=== PATIENT | male | born 1980 | race Two or more races ===

== ENCOUNTER 2023-06-24 20:28 | Emergency (ER) | payer OTHER ==
[~2023-06-24] VITALS: Ht 152.4 cm; Wt 85.3 kg
[2023-06-24] MEDS ORDERED: ATACAND32 MG (20:46)
[2023-06-24 21:33] LABS: HEMATOCRIT 35.8 % (39.0-48.0); HEMOGLOBIN 12.5 g/dL (13-16.00); MEAN CELL VOLUME 88.7 fL (80.0-100.00); PLATELET COUNT 251 K/uL (150-450); RED BLOOD COUNT 4.03 M/uL (4.00-6.00); RED CELL DISTRIBUTION WIDTH 13.2 % (11.5-14.5)
[2023-06-24 21:55] LABS: ALBUMIN 3.5 gm/dL (3.4-5.0); BILIRUBIN TOTAL 0.34 mg/dL (0.3-1.2); CREATININE SERUM 0.97 mg/dL (0.70-1.30); GFR 83.69; GLOBULINA 3.8 G/DL (2.4-3.5); POTASSIUM 3.64 mEq/L (3.5-5.1); TOTAL PROTEIN 7.3 gm/dL (6.4-8.2)
[2023-06-24] MEDS ORDERED: PEPCID AC20 MG PO (22:01)
== END 2023-06-24 22:24 | disposition home or self-care (01) ==
LOC: ER 20:28
PROVIDERS: General Practice
DX: R06.6 Hiccough (principal); Z88.0 Allergy status to penicillin; Z88.8 Allergy status to other drugs, medicaments and biological substances; Z91.041 Radiographic dye allergy status

== ENCOUNTER 2024-03-26 09:00 | Inpatient (IN) | payer OTHER ==
[~2024-03-26] VITALS: Ht 172.7 cm; Wt 77.6 kg
[~2024-03-26 09:00] MED LIST: ATACAND32 MG; PEPCID AC20 MG PO
[2024-03-26] MEDS ORDERED: HYDROCHLOROTHIA25 MG (09:12)
--- NOTE | 2024-03-26 09:12 | NUR ---
PTE ALERTA Y ORIENTADO X3 REFIERE QUE DESDE HACE UNOS AGRAWAL, TIENE DOLOR DE SALO, CUERPO, DEBILIDAD Y TIENE UN BUMP EN EL LADO GEOVANAN DE LA SALO. SE PASCUAL REALIZADO CBC VARIAS VECES LO CUAL LE KUMAR BAJADO LAS PLAQUETAS DE LOS [address]. SE LE DEANNA S/V Y SE UBICA
--- NOTE | 2024-03-26 09:29 | NUR ---
PTE ALERTA Y ORIENTADO X3 RN MCKEON LE ORIENTA SOBRE TX MEDICO LO CUAL REFIERE ENTENDER Y ACEPTAR SE LE ADMINISTRA MEDICAMENTOS LINA ORDEN MEDICA Y SE LE REALIZAN MUESTRAS DE LAB BAJO MEDIDAS ASEPTICAS
[2024-03-26] MEDS ORDERED: 0.9 % SODIUM CHLORIDE 1,000 ML IV ONE ×2 (09:30→12:30)
[2024-03-26] MEDS ORDERED: TRAMADOL HCL 50 MG TABLET PO ONE (09:30)
[2024-03-26] MEDS ORDERED: METHYLPREDNISOLONE SOD SUCC 40 MG VIAL IV ONE (09:45)
[2024-03-26] MEDS ORDERED: DIPHENHYDRAMINE HCL 50 MG/ML VIAL 1ML IV ONE (09:45)
[2024-03-26 10:11] LABS: HEMATOCRIT 35.4 % (39.0-48.0); HEMOGLOBIN 12.7 g/dL (13-16.00); MEAN CELL VOLUME 86.2 fL (80.0-100.00); MEAN CORPUSCULAR HEMOGLOBIN 30.9 pg (27.00-32.0); MEAN CORPUSCULAR HGB CONC 35.8 g/dl (32.0-36.0); RED BLOOD COUNT 4.11 M/uL (4.00-6.00); RED CELL DISTRIBUTION WIDTH 12.9 % (11.5-14.5)
[2024-03-26 10:18] LABS: PLATELET COUNT 84 K/uL (150-450)
[2024-03-26 10:24] LABS: ALBUMIN 3.6 gm/dL (3.4-5.0); BILIRUBIN TOTAL 0.47 mg/dL (0.3-1.2); CALCIUM 8.5 mg/dL (8.5-10.1); CREATININE SERUM 0.83 mg/dL (0.70-1.30); GFR 99.74; GLOBULINA 3.7 G/DL (2.4-3.5); POTASSIUM 3.49 mEq/L (3.5-5.1); TOTAL PROTEIN 7.3 gm/dL (6.4-8.2)
[2024-03-26] MEDS ORDERED: ONDANSETRON HCL 2 MG/ML VIAL IV ONE (13:30)
[2024-03-26] MEDS ORDERED: MORPHINE SULFATE 4 MG/ML VIAL IV ONE (13:30)
[2024-03-26] MEDS ORDERED: FAMOtidine 10 MG/ML (4ML VIAL) IV ONE (13:30)
[2024-03-26 14:02] LABS: HEMATOCRIT 34.5 % (39.0-48.0); HEMOGLOBIN 12.2 g/dL (13-16.00); MEAN CELL VOLUME 86.5 fL (80.0-100.00); MEAN CORPUSCULAR HEMOGLOBIN 30.6 pg (27.00-32.0); MEAN CORPUSCULAR HGB CONC 35.3 g/dl (32.0-36.0); PLATELET COUNT 88 K/uL (150-450); RED BLOOD COUNT 3.99 M/uL (4.00-6.00); RED CELL DISTRIBUTION WIDTH 13.2 % (11.5-14.5)
--- NOTE | 2024-03-26 15:00 | NUR ---
SE RECIBE PACIENTE DE TURNO ANTERIOR, ALERTA Y ORIENTADO EN JUAN PABLO TIMOTHY ESFERAS UBICADO EN [place] DE [facility]. SE OBSERVA CON BUEN PATRON RESPIRATORIO Y PIEL TIBIA AL TACTO. CANALIZACION EN RA PATENTE,TANYA DE EDEMA O ERITEMA; RECIBIENDO IV FLUIDS. PACIENTE CONSULTADO CON DR. BRISSA MA.
[2024-03-26] MEDS ORDERED: TRAMADOL HCL 50 MG TABLET PO PRN (19:00)
[2024-03-26] MEDS ORDERED: ACETAMINOPHEN 500 MG GEL..CAP PO PRN (19:00)
[2024-03-26] MEDS ORDERED: 0.9 % SODIUM CHLORIDE 1,000 ML IV SCH (19:00)
[2024-03-26] MEDS ORDERED: MORPHINE SULFATE 2 MG/ML CARTRIDGE IV PRN (19:15)
[2024-03-26 19:56] LABS: URINE APPEARANCE Clear; URINE BILIRRUBIN Negative (NEGATIVE); URINE BLOOD Negative; URINE COLOR Yellow; URINE GLUCOSE Negative (NEGATIVE); URINE KETONE Trace (NEGATIVE); URINE LEUKOCYTE Negative; URINE NITRATE Negative; URINE PROTEIN Trace (NEGATIVE)
[2024-03-26 20:00] LABS: URINE RBC 2.4 uL (0.0-20.8)
[2024-03-26 20:06] LABS: URINE BACTERIA 1.2 uL (0.0-1933); URINE EPITHELIAL CELLS 0.6 uL (0.0-38.8)
[2024-03-26 20:13] LABS: INR < 0.93; PARTIAL THROMBOPLASTIN TIME 27.9 SECONDS (22.0-34.0); PROTHROMBIN TIME 10.2 SECONDS (9.0-11.5)
[2024-03-26 21:12] VITALS: BP 123/76; O2SAT 97
[2024-03-27 00:42] VITALS: BP 122/76; O2SAT 98
[2024-03-27 07:09] LABS: HEMATOCRIT 32.8 % (39.0-48.0); HEMOGLOBIN 11.7 g/dL (13-16.00); MEAN CELL VOLUME 87.6 fL (80.0-100.00); MEAN CORPUSCULAR HEMOGLOBIN 31.2 pg (27.00-32.0); MEAN CORPUSCULAR HGB CONC 35.7 g/dl (32.0-36.0); RED BLOOD COUNT 3.74 M/uL (4.00-6.00); RED CELL DISTRIBUTION WIDTH 13.3 % (11.5-14.5)
[2024-03-27 07:51] VITALS: BP 123/83; O2SAT 98
[2024-03-27 07:52] LABS: ALBUMIN 3.3 gm/dL (3.4-5.0); ALKALINE PHOSPHATASE 52 U/L (50-136); ALT/SGPT 120 U/L (12-78); ANION GAP 8 (10.0-20.0); AST/SGOT 88 U/L (15-37); BILIRUBIN TOTAL 0.33 mg/dL (0.3-1.2); BILIRUBIN,CONJUGATED < 0.10 mg/dL (0.0-0.2); BILIRUBIN,UNCONJUGATED 0.23 mg/dL (0.0-0.6); BLOOD UREA NITROGEN 15 mg/dL (7-18); BUN CREA RATIO 20 (7.0-25.0); CALCIUM 8.3 mg/dL (8.5-10.1); CARBON DIOXIDE 30 mEq/L (21-32); CHLORIDE 111 mmol/L (98-107); CREATININE SERUM 0.75 mg/dL (0.70-1.30); GFR 112.12; GLUCOSE FASTING 94 mg/dL (65-100); OSMOLALITY SERUM 289 MOSM/KG (275-295); POTASSIUM 4.12 mEq/L (3.5-5.1); SODIUM 145 mmol/L (136-145); TOTAL PROTEIN 6.4 gm/dL (6.4-8.2)
[2024-03-27 08:24] LABS: PLATELET COUNT 99 K/uL (150-450)
[2024-03-27 08:31] LABS: PLATELET ESTIMATE NORMAL (NORMAL)
[2024-03-27] MEDS ORDERED: PANTOPRAZOLE SODIUM 40 MG/VIAL VIAL IV SCH (09:00)
[2024-03-27] MEDS ORDERED: CANDESARTAN CILEXETIL 32 MG TABLET PO SCH (09:00)
[2024-03-27] MEDS ORDERED: HYDROCHLOROTHIAZIDE 25 MG TABLET PO SCH (09:00)
[2024-03-27 16:25] VITALS: BP 127/85; O2SAT 100
[2024-03-27] MEDS ORDERED: DIPHENHYDRAMINE HCL 50 MG/ML VIAL 1ML IV NR (17:00)
[2024-03-28 00:36] VITALS: BP 115/69; O2SAT 98
[2024-03-28 07:48] LABS: HEMATOCRIT 33.5 % (39.0-48.0); HEMOGLOBIN 11.9 g/dL (13-16.00); MEAN CELL VOLUME 86.6 fL (80.0-100.00); MEAN CORPUSCULAR HEMOGLOBIN 30.9 pg (27.00-32.0); MEAN CORPUSCULAR HGB CONC 35.6 g/dl (32.0-36.0); PLATELET COUNT 166 K/uL (150-450); RED BLOOD COUNT 3.87 M/uL (4.00-6.00); RED CELL DISTRIBUTION WIDTH 13.4 % (11.5-14.5)
[2024-03-28 08:38] LABS: ALBUMIN 3.3 gm/dL (3.4-5.0); BILIRUBIN TOTAL 0.34 mg/dL (0.3-1.2); BILIRUBIN,CONJUGATED 0.11 mg/dL (0.0-0.2); BILIRUBIN,UNCONJUGATED 0.23 mg/dL (0.0-0.6); CALCIUM 8.1 mg/dL (8.5-10.1); CREATININE SERUM 0.88 mg/dL (0.70-1.30); GFR 93.23; POTASSIUM 4.03 mEq/L (3.5-5.1); TOTAL PROTEIN 6.3 gm/dL (6.4-8.2)
[2024-03-28] MEDS ORDERED: PANTOPRAZOLE SODIUM 40 MG TABLET.DR PO SCH (09:00)
[2024-03-28] MEDS ORDERED: ZYRTEC10 M3 PO (09:21)
[2024-03-28] MEDS ORDERED: TRAMADOL HCL50 MG PO (09:22)
[2024-03-29 12:09] LABS: vca igm ab < 36.0 U/mL (0.0-35.9)
== END 2024-03-28 10:24 | disposition home or self-care (01) | DRG 866 ==
LOC: ER 09:02 → SURH 19:25
PROVIDERS: General Practice; ADMIT Internal Medicine; ATTEND Internal Medicine
PROC: BN25YZZ Computerized Tomography (CT Scan) of Facial Bones using Other Contrast (ICD-10-PCS; principal; 2024-03-26)
DX: A90 Dengue fever [classical dengue] (principal); B27.00 Gammaherpesviral mononucleosis without complication; B34.9 Viral infection, unspecified; D69.59 Other secondary thrombocytopenia; R59.0 Localized enlarged lymph nodes; I10 Essential (primary) hypertension